=== PATIENT | female | born 1995 | race Caucasian/White ===

== ENCOUNTER 2016-09-02 09:54 | Emergency (ER) | payer OTHER ==
[~2016-09-02] VITALS: Ht 157.5 cm; Wt 66.2 kg
--- NOTE | 2016-09-02 10:30 | ED GENERAL ADULT ---
History of Present Illness General Chief Complaint: Low Back Pain/Injury Stated Complaint: PAIN IN THE BACK NEAR KIDNEY Source: patient Exam Limitations: no limitations Vital Signs & Intake/Output Vital Signs & Intake/Output Vital Signs Date Time Temp Pulse Resp B/P Pulse O2 O2 Flow FiO2 Ox Delivery Rate 09/02 1011 97.4 83 18 111/76 99 Room Air Allergies Coded Allergies: No Known Allergies (09/02/16) Reconcile Medications Ciprofloxacin HCl (Cipro) 500 MG TABLET 1 TAB PO BID pyelonephritis Ibuprofen 800 MG TABLET 1 TAB PO Q8H PRN pain Tramadol HCl 50 MG TABLET 1-2 TAB PO Q6 PRN pain Triage Note: C/O R SIDED FLANK PAIN SINCE LAST PM, WORSE TODAY, WITH NAUSEA, PAINFUL URIANTION. DENIES PRENANCY. PMH: KIDNEY STONES 2014. Triage Nurses Notes Reviewed? yes : No Patient currently breastfeeds: No HPI: Patient is a 21 year old female with history of kidney stones presents complaining of right low back pain x 2 days, right flank pain radiating into right groin x 1 day. dysuria and hematuria today. Symptoms are severe, patient has not taken any medication for her symptoms today. Pain feels similar to previous kidney stone that was diagnosed by ultrasound in the summer of 2014 at [facility]. Last menstrual period was 3 weeks ago and normal. Denies fevers. Past History Travel History Traveled to [place] past 21 day No Medical History Any Pertinent Medical History? see below for history Neurological: NONE EENT: NONE Cardiovascular: NONE Respiratory: asthma Gastrointestinal: NONE Hepatic: NONE Renal: nephrolithiasis Musculoskeletal: NONE Psychiatric: NONE Endocrine: NONE Surgical History Surgical History: non-contributory Psychosocial History What is your primary language Danish Tobacco Use: Current Daily Use Daily Tobacco Use Amount/Type: =< 4 Cigarettes daily ETOH Use: occasional use Family History Hx Contributory? No Review of Systems Review of Systems Constitutional: Denies: chills, fever. EENTM: Reports: no symptoms. Respiratory: Denies: cough, short of breath. Cardiovascular: Denies: chest pain, palpitations. GI: Reports: abdominal pain, nausea. Denies: vomiting. Genitourinary: Reports: see HPI, frequency, hematuria, urgency. Musculoskeletal: Reports: back pain. Skin: Reports: no symptoms. Neurological/Psychological: Reports: no symptoms. Hematologic/Endocrine: Reports: no symptoms. Immunologic/Allergic: Reports: no symptoms. Physical Exam Physical Exam General Appearance: well developed/nourished, alert, awake Head: atraumatic, normal appearance Eyes: Bilateral: normal appearance, PERRL, EOMI. Ears, Nose, Throat: hearing grossly normal Neck: normal inspection, supple, full range of motion Respiratory: normal breath sounds, chest non-tender, no respiratory distress, lungs clear Cardiovascular: regular rate/rhythm Gastrointestinal: normal bowel sounds, soft, MILD DIFFUSE RIGHT-SIDED ABDOMINAL TENDERNESS. nEGATIVE Bowers SIGN Back: normal inspection, normal range of motion, CVA tenderness (R) Extremities: normal inspection, normal capillary refill, normal range of motion, no edema Neurologic/Psych: no motor/sensory deficits, awake, alert, oriented x 3, normal gait, normal mood/affect Skin: intact, normal color, warm/dry Lymphatic: no anterior cervical felicita Core Measures ACS in differential dx? No CVA/TIA Diagnosis: No Severe Sepsis Present: No Septic Shock Present: No Progress Differential Diagnoses I considered the following diagnoses in my evaluation of the patient: Pyelonephritis, renal colic, cholecystitis, appendicitis, musculoskeletal pain Plan of Care: Orders Procedure Date/time Status Add-on Test (ER Only) 09/02 1109 Active CULTURE,URINE 09/02 1045 Active COMPREHENSIVE METABOLIC PANEL 09/02 1040 Complete CBC WITHOUT DIFFERENTIAL 09/02 1040 Complete URINE 09/02 1015 Complete URINALYSIS 09/02 1015 Complete Current Medications Sig/[place] Start time Last Medication Dose Stop Time Status Admin Ciprofloxacin 500 MG ONCE ONE 09/02 1245 UNVr (Cipro) 09/02 1246 Laboratory Tests 09/02/16 1050: Anion Gap 9, Estimated GFR > 60, BUN/Creatinine Ratio 18.6, Glucose 92, Calcium 9.4, Total Bilirubin 1.0, AST 26, ALT 36, Alkaline Phosphatase 62, Total Protein 7.1, Albumin 3.8, Globulin 3.3, Albumin/Globulin Ratio 1.2, CBC w Diff NO MAN DIFF REQ, RBC 4.49, MCV 89.3, MCH 30.0, RDW 12.9, MPV 7.9, Gran % 73.7, Lymphocytes % 17.4 L, Monocytes % 8.3, Eosinophils % 0.3, Basophils % 0.3, Absolute Granulocytes 9.6 H, Absolute Lymphocytes 2.3, Absolute Monocytes 1.1 H, Absolute Eosinophils 0, Absolute Basophils 0, PUBS MCHC 33.6 09/02/16 1045: Urine Color YEL, Urine Clarity HAZY H, Urine pH 7.5, Ur Specific [place] 1.025, Urine Protein 100 H, Urine Ketones NEG, Urine Nitrite NEG, Urine Bilirubin NEG, Urine Urobilinogen 0.2, Ur Leukocyte Esterase MOD H, Ur Microscopic SEDIMENT EXAMINED, Urine RBC 50-75 H, Urine WBC > 75 H, Ur Epithelial Cells RARE, Urine Bacteria MANY H, Urine Hemoglobin LARGE H, Urine Glucose NEG, Urine Test NEGATIVE Microbiology 09/02 1044 URINE ROUT: Urine Culture - RECD 09/02/2016 12:23:12 PM: Patient resting comfortably. Results of x-ray and labs discussed with patient. Awaiting results of ultrasound. 09/02/2016 12:39:33 PM: Results of ultrasound discussed with patient. Patient nontoxic appearing, pain appears well controlled. Appears stable for discharge. Registration provided patient with information for primary care provider. Patient insturcted to return to emergency department if worsening. (BUZZ MONTALVO,KORINA) Diagnostic Imaging: Viewed by Me: Radiology Read. Discussed w/RAD: Radiology Read. 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 ORDERING PHYSICIAN: KORINA MONTALVO SERVICE DATE: 09/02/16 EXAM TYPE: RAD - XRY-KIDNEYS, URETERS, BLADDER EXAMINATION: XR KIDNEYS, URETER, BLADDER CLINICAL INDICATION: Right flank pain COMPARISON: None TECHNIQUE: AP views of the abdomen. FINDINGS: Assessment for renal calculi is limited by overlying bowel contents. No definite renal calculi are seen. The bowel gas pattern is nonobstructive, with moderate stool throughout the colon. The visualized lung bases are clear. No acute osseous findings are seen. IMPRESSION: No renal calculi identified. DICTATED BY: HOPE CASILLAS MD DATE/TIME DICTATED:09/02/161146 FOREST SUPERVISOR:TANYA DATE/TIME TRANSCRIBED:09/02/161146 CONFIDENTIAL, DO NOT COPY WITHOUT APPROPRIATE AUTHORIZATION. 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 ORDERING PHYSICIAN: KORINA MONTALVO SERVICE DATE: 09/02/16 EXAM TYPE: US - US-RENAL/KIDNEY EXAMINATION: US RETROPERITONEAL COMPLETE (RENAL) CLINICAL INFORMATION: Right flank pain and hematuria. COMPARISON: KUB obtained the same day TECHNIQUE: Real- time imaging of the kidneys and bladder. FINDINGS: RIGHT KIDNEY: 10.3 x 4.4 x 4.9 cm (SAG x AP x TRV). The kidney is normal in size, contour, and echogenicity. Renal cortical thickness is normal. No calculi or focal parenchymal lesions. No hydronephrosis. LEFT KIDNEY: 10.9 x 5.2 x 4.8 cm (SAG x AP x TRV). The kidney is normal in size, contour, and echogenicity. Renal cortical thickness is normal. No calculi or focal parenchymal lesions. No hydronephrosis. BLADDER: There may be mild bladder wall thickening. No stone or mass is seen. Bilateral ureteral jets are demonstrated. Prevoid and postvoid bladder volumes were not obtained. IMPRESSION: Normal renal ultrasound. Question mild bladder wall thickening. DICTATED BY: WOO SABILLON MD DATE/TIME DICTATED:09/02/161226 FOREST SUPERVISOR:TANYA DATE/TIME TRANSCRIBED:1226 CONFIDENTIAL, DO NOT COPY WITHOUT APPROPRIATE AUTHORIZATION. < Electronically signed in Other Vendor System> SIGNED BY: WOO SABILLON MD 09/02/16 1233 Initial ED EKG: none Departure Departure Time of Disposition: 1236 Disposition: HOME OR SELF CARE Condition: Stable Clinical Impression Primary Impression: Acute pyelonephritis Referrals: PATIENT HAS NO PRIMARY CARE DR (PCP/Family) Additional Instructions: Follow-up with the primary care doctor that was provided to by registration. Return to the emergency department immediately if you develop fevers, pain uncontrollable, vomiting, or worsening of symptoms. Departure Forms: Customer Survey General Discharge Information Prescriptions: Current Visit Scripts Ciprofloxacin HCl (Cipro) 1 TAB PO BID #14 TAB Ibuprofen 1 TAB PO Q8H PRN pain #30 TAB Tramadol HCl 1-2 TAB PO Q6 PRN pain #15 TAB Critical Care Note Critical Care Note Critical Care Time: non-applicable
[2016-09-02 10:53] LABS: ABSOLUTE BASOPHIL COUNT 0 /CUMM (0.0-0.2); ABSOLUTE EOSINOPHIL COUNT 0 /CUMM (0.0-0.7); ABSOLUTE GRANULOCYTE CT 9.6 /CUMM (1.4-6.5); ABSOLUTE LYMPH COUNT 2.3 /CUMM (1.2-3.4); ABSOLUTE MONOCYTE COUNT 1.1 /CUMM (0.10-0.60); BASOPHIL % 0.3 % (0.0-2.0); EOSINOPHIL % 0.3 % (0-5); GRANULOCYTE % 73.7 % (42.2-75.2); MEAN CORPUSCULAR HGB CONC 33.6 G/DL (33.0-37.0); MEAN CORPUSCULAR VOLUME 89.3 FL (81.0-99.0); MEAN PLATELET VOLUME 7.9 FL (7.4-10.4); PLATELET COUNT 222 /CUMM (130-400); RBC DISTRIBUTION WIDTH 12.9 % (11.5-14.5); RED BLOOD CELL CT 4.49 /CUMM (4.20-5.40)
--- NOTE | 2016-09-02 11:52 | RADIOLOGY REPORT ---
EXAMINATION: XR KIDNEYS, URETER, BLADDER CLINICAL INDICATION: Right flank pain COMPARISON: None TECHNIQUE: AP views of the abdomen. FINDINGS: Assessment for renal calculi is limited by overlying bowel contents. No definite renal calculi are seen. The bowel gas pattern is nonobstructive, with moderate stool throughout the colon. The visualized lung bases are clear. No acute osseous findings are seen. IMPRESSION: No renal calculi identified.
--- NOTE | 2016-09-02 12:33 | ULTRASOUND REPORT ---
EXAMINATION: US RETROPERITONEAL COMPLETE (RENAL) CLINICAL INFORMATION: Right flank pain and hematuria. COMPARISON: KUB obtained the same day TECHNIQUE: Real-time imaging of the kidneys and bladder. FINDINGS: RIGHT KIDNEY: 10.3 x 4.4 x 4.9 cm (SAG x AP x TRV). The kidney is normal in size, contour, and echogenicity. Renal cortical thickness is normal. No calculi or focal parenchymal lesions. No hydronephrosis. LEFT KIDNEY: 10.9 x 5.2 x 4.8 cm (SAG x AP x TRV). The kidney is normal in size, contour, and echogenicity. Renal cortical thickness is normal. No calculi or focal parenchymal lesions. No hydronephrosis. BLADDER: There may be mild bladder wall thickening. No stone or mass is seen. Bilateral ureteral jets are demonstrated. Prevoid and postvoid bladder volumes were not obtained. IMPRESSION: Normal renal ultrasound. Question mild bladder wall thickening.
[2016-09-02] MEDS ORDERED: TRAMADOL HCL50 M1 PO (12:37)
[2016-09-02] MEDS ORDERED: CIPRO500 M1 PO (12:37)
[2016-09-02] MEDS ORDERED: IBUPROFEN800 M1 PO (12:37)
[2016-09-02 12:59] VITALS: BP 118/72
== END 2016-09-02 13:01 ==
LOC: ERH 09:54
PROVIDERS: Physician Assistant
DX: N10 Acute pyelonephritis (principal)
CPT/HCPCS: 74000; 76775; 81001; 81025; 87086; 96361; 96374; 96375; J1885; J2405